=== PATIENT | male | born 2000 | race Caucasian/White ===

== ENCOUNTER 2024-09-19 17:40 | Emergency (ER) | payer OTHER ==
[2024-09-19 17:51] VITALS: TEMP 98.7; BMI 28.1
[2024-09-19 18:40] LABS: BASO % 0.3 % (0-2.0); EOS % 0.2 % (0-4.5); HEMATOCRIT 45.1 % (35.4-49); HEMOGLOBIN 15.4 GM/dL (11.7-16.9); LYMPH % 15.9 % (8-40); MCH 29.1 pg (25.7-33.7); MCHC 34.2 g/dl (32.0-35.9); MONO % 3.7 % (3.8-10.2); NEUT % 79.9 % (42.8-82.8); PLATELET COUNT 265 10^3/uL (134-434); RBC 5.31 M/mm3 (4.00-5.60); RDW 13.2 % (11.9-15.9); WHITE BLOOD COUNT 10.4 K/mm3 (4.0-10.0)
[2024-09-19] MEDS ORDERED: ONDANSETRON 4 MG/2 ML VIAL ONE (18:48)
[2024-09-19] MEDS: SODIUM CHLORIDE 0.9% 500 ML INFUS.BAG IV ONE (19:02)
[2024-09-19] MEDS: ONDANSETRON 4 MG/2 ML VIAL IVPUSH ONE (19:02)
[2024-09-19 19:06] LABS: POTASSIUM 3.5 mmol/L (3.5-5.1)
[2024-09-19 19:08] LABS: CALCIUM 9.6 mg/dL (8.5-10.1)
[2024-09-19 19:09] LABS: ALBUMIN 4.4 g/dl (3.4-5.0)
[2024-09-19 19:11] LABS: CREATININE 0.8 mg/dL (0.55-1.3)
[2024-09-19 19:13] LABS: BILIRUBIN,TOTAL 0.7 mg/dL (0.2-1); TOT PROT 7.7 g/dl (6.4-8.2)
[2024-09-19 20:14] LABS: HIV INTERPRETATION NEGATIVE (NEGATIVE)
[2024-09-19 22:15] VITALS: BP 129/85; PULSE 84; RESP 18
== END 2024-09-19 23:37 | disposition home or self-care (01) ==
LOC: JER 17:40
PROC: 3E033GC Introduction of Other Therapeutic Substance into Peripheral Vein, Percutaneous Approach (ICD-10-PCS; principal; 2024-09-19)
DX: R10.13 Epigastric pain (principal); R10.31 Right lower quadrant pain; R10.11 Right upper quadrant pain
CPT/HCPCS: 0241U-QW; 36415; 74177-TC; 80053; 83690; 85025; 86803; 87389; 99284-25; Q9967